=== PATIENT | male | born 1940 | race Caucasian/White ===

== ENCOUNTER 2017-11-17 12:35 | Emergency (ER) | payer MEDICARE ==
[~2017-11-17] VITALS: Ht 188 cm; Wt 100.0 kg
[~2017-11-17 12:35] MED LIST: ASPI-955; LEVO125T PO; LISI1TAB11 PO; PRAV80TA3 PO
[2017-11-17] MEDS ORDERED: normal saline 1000ML IV soln IVB ONE (12:50)
[2017-11-17] MEDS ORDERED: magnesium 1gm/100ml D5W IVPB 100 ML IV ONE (13:05)
[2017-11-17 13:15] LABS: BASOPHILS % (AUTO) 0.3 % (0-1); EOSINOPHILS # (AUTO) 0.1 X10'3 (0-0.9); EOSINOPHILS % (AUTO) 1.9 % (0-6); HEMATOCRIT 42.9 % (42.0-52.0); HEMOGLOBIN 14.3 g/dl (14.0-17.9); LYMPHOCYTES # (AUTO) 0.9 X10'3 (1.1-4.8); LYMPHOCYTES % (AUTO) 14.6 % (21-51); MEAN CORPUSCULAR HEMOGLOBIN 30.4 PG (27.0-31.0); MEAN CORPUSCULAR HGB CONC 33.3 % (33.0-36.5); MEAN CORPUSCULAR VOLUME 91.3 FL (78-98); MEAN PLATELET VOLUME 8.1 FL (7.4-10.4); MONOCYTES # (AUTO) 0.4 X10'3 (0-0.9); NEUTROPHILS # (AUTO) 4.8 X10'3 (1.8-7.7); NEUTROPHILS % (AUTO) 76.2 % (42-75); PLATELET COUNT 172 X10'3 (140-440); WHITE BLOOD COUNT 6.2 X10'3 (4.5-11.0)
[2017-11-17 13:26] LABS: ALBUMIN 3.9 G/DL (3.4-5.0); ANION GAP 5 (8-16); BILIRUBIN,TOTAL 0.6 MG/DL (0.1-1.0); BLOOD UREA NITROGEN 36 MG/DL (7-18); BUN/CREATININE RATIO 27.9 (5.4-32.0); CALCIUM 9.2 MG/DL (8.5-10.1); CHLORIDE 103 MMOL/L (99-107); CREATININE 1.29 MG/DL (0.60-1.10); GLUCOSE 144 MG/DL (70-104); POTASSIUM 4.2 MMOL/L (3.5-5.1); SODIUM 138 MMOL/L (135-145); TOTAL CARBON DIOXIDE 29.6 MMOL/L (24-32); TOTAL PROTEIN 7.7 G/DL (6.4-8.2); eGFR 54 ML/MIN
[2017-11-17 13:27] LABS: ALANINE AMINOTRANSFERASE 30 U/L (12-78); ALKALINE PHOSPHATASE 93 IU/L (46-116); ASPARTATE AMINO TRANSFERASE 20 U/L (10-37)
[2017-11-17 13:31] LABS: D-DIMER 0.32 MG/L FEU (0-0.50)
[2017-11-17 13:42] LABS: MAGNESIUM 2.3 MG/DL (1.5-2.4)
[2017-11-17 15:08] VITALS: BP 128/88
== END 2017-11-17 15:11 | disposition home or self-care (01) ==
LOC: ER 12:35
DX: E86.0 Dehydration (principal); I48.91 Unspecified atrial fibrillation; I25.10 Atherosclerotic heart disease of native coronary artery without angina pectoris; Z95.5 Presence of coronary angioplasty implant and graft; Z79.899 Other long term (current) drug therapy
CPT/HCPCS: 36415; 71045; 80053; 83735; 83880; 84443; 84484; 85025; 85379; 93005; 96361; 96365; 99285; J7030

== ENCOUNTER 2018-04-05 14:10 | Emergency (ER) | payer MEDICARE ==
[~2018-04-05] VITALS: Ht 188 cm; Wt 86.8 kg
[2018-04-05] MEDS ORDERED: normal saline 1000ML IV soln IVB ONE (14:35)
[2018-04-05] MEDS ORDERED: diltiazem 5mg/ml 5ml inj. IV ONE (14:35)
[2018-04-05 15:03] LABS: BASOPHILS % (AUTO) 0.5 % (0-1); EOSINOPHILS # (AUTO) 0.1 X10'3 (0-0.9); EOSINOPHILS % (AUTO) 1.3 % (0-6); HEMATOCRIT 44.7 % (42.0-52.0); HEMOGLOBIN 14.5 g/dl (14.0-17.9); MEAN CORPUSCULAR HEMOGLOBIN 29.5 PG (27.0-31.0); MEAN CORPUSCULAR HGB CONC 32.4 % (33.0-36.5); MEAN PLATELET VOLUME 8.3 FL (7.4-10.4); MONOCYTES # (AUTO) 0.4 X10'3 (0-0.9); MONOCYTES % (AUTO) 5.8 % (2-12); NEUTROPHILS # (AUTO) 5.5 X10'3 (1.8-7.7); NEUTROPHILS % (AUTO) 78.4 % (42-75); PLATELET COUNT 186 X10'3 (140-440); RED BLOOD COUNT 4.91 X10'6 (4.70-6.10); RED CELL DISTRIBUTION WIDTH 12.2 % (11.5-14.5)
[2018-04-05 15:10] LABS: INR 1.2 INR; PARTIAL THROMBOPLASTIN TIME 33 SECONDS (22-32); PROTHROMBIN TIME 11.7 SECONDS (9.0-12.0)
[2018-04-05 15:20] LABS: ALANINE AMINOTRANSFERASE 26 U/L (12-78); ALBUMIN/GLOBULIN RATIO 1.1 (1.1-1.5); ALKALINE PHOSPHATASE 93 IU/L (46-116); ANION GAP 10 (8-16); ASPARTATE AMINO TRANSFERASE 20 U/L (10-37); BILIRUBIN,TOTAL 0.5 MG/DL (0.1-1.0); BLOOD UREA NITROGEN 32 MG/DL (7-18); BUN/CREATININE RATIO 25.6 (5.4-32.0); CALCIUM 9.4 MG/DL (8.5-10.1); CHLORIDE 102 MMOL/L (99-107); CREATININE 1.25 MG/DL (0.60-1.10); GLUCOSE 117 MG/DL (70-104); MAGNESIUM 2.2 MG/DL (1.5-2.4); POTASSIUM 4.4 MMOL/L (3.5-5.1); SODIUM 138 MMOL/L (135-145); TOTAL CARBON DIOXIDE 25.7 MMOL/L (24-32); TOTAL PROTEIN 7.8 G/DL (6.4-8.2); eGFR 56 ML/MIN
[2018-04-05 15:48] VITALS: BP 131/80
== END 2018-04-05 15:53 | disposition home or self-care (01) ==
LOC: ER 14:11
DX: I48.2 Chronic atrial fibrillation (principal); R00.2 Palpitations; I25.10 Atherosclerotic heart disease of native coronary artery without angina pectoris; I10 Essential (primary) hypertension
CPT/HCPCS: 36415; 71045; 80053; 83735; 83880; 84484; 85025; 85610; 85730; 99284; J7030

== ENCOUNTER 2018-04-09 11:45 | Emergency (ER) | payer MEDICARE ==
[~2018-04-09] VITALS: Ht 188 cm; Wt 86.0 kg
[2018-04-09] MEDS ORDERED: RIVA20TA PO (12:02)
[2018-04-09 12:14] LABS: BASOPHILS % (AUTO) 0.2 % (0-1); EOSINOPHILS # (AUTO) 0.1 X10'3 (0-0.9); EOSINOPHILS % (AUTO) 1.6 % (0-6); HEMATOCRIT 43.9 % (42.0-52.0); HEMOGLOBIN 14.7 g/dl (14.0-17.9); LYMPHOCYTES # (AUTO) 1.2 X10'3 (1.1-4.8); LYMPHOCYTES % (AUTO) 16.9 % (21-51); MEAN CORPUSCULAR HEMOGLOBIN 30.2 PG (27.0-31.0); MEAN CORPUSCULAR HGB CONC 33.5 % (33.0-36.5); MEAN CORPUSCULAR VOLUME 90.2 FL (78-98); MEAN PLATELET VOLUME 8.3 FL (7.4-10.4); MONOCYTES # (AUTO) 0.5 X10'3 (0-0.9); NEUTROPHILS # (AUTO) 5.1 X10'3 (1.8-7.7); NEUTROPHILS % (AUTO) 73.3 % (42-75); PLATELET COUNT 193 X10'3 (140-440); RED BLOOD COUNT 4.87 X10'6 (4.70-6.10); RED CELL DISTRIBUTION WIDTH 12.9 % (11.5-14.5); WHITE BLOOD COUNT 6.9 X10'3 (4.5-11.0)
[2018-04-09 12:25] LABS: ALANINE AMINOTRANSFERASE 21 U/L (12-78); ALBUMIN 4.2 G/DL (3.4-5.0); ALBUMIN/GLOBULIN RATIO 1.1 (1.1-1.5); ALKALINE PHOSPHATASE 87 IU/L (46-116); ANION GAP 13 (8-16); ASPARTATE AMINO TRANSFERASE 21 U/L (10-37); BLOOD UREA NITROGEN 27 MG/DL (7-18); BUN/CREATININE RATIO 19.6 (5.4-32.0); CALCIUM 9.5 MG/DL (8.5-10.1); CHLORIDE 102 MMOL/L (99-107); CREATININE 1.38 MG/DL (0.60-1.10); GLUCOSE 126 MG/DL (70-104); POTASSIUM 4.1 MMOL/L (3.5-5.1); SODIUM 140 MMOL/L (135-145); TOTAL CARBON DIOXIDE 24.9 MMOL/L (24-32); eGFR 50 ML/MIN
[2018-04-09 12:30] LABS: INR 1.3 INR; PARTIAL THROMBOPLASTIN TIME 36 SECONDS (22-32); PROTHROMBIN TIME 12.6 SECONDS (9.0-12.0)
[2018-04-09 12:31] LABS: MAGNESIUM 2.1 MG/DL (1.5-2.4)
[2018-04-09] MEDS ORDERED: METO25TA6 PO (13:34)
[2018-04-09] MEDS ORDERED: metoprolol tartrate 50mg tablet PO ONE (13:35)
[2018-04-09] MEDS ORDERED: metoprolol tartrate 12.5mg (1/2 tablet) PO ONE (13:40)
[2018-04-09 14:34] VITALS: BP 135/85
== END 2018-04-09 14:37 | disposition home or self-care (01) ==
LOC: ER 11:46
DX: I49.9 Cardiac arrhythmia, unspecified (principal); I49.5 Sick sinus syndrome; I48.91 Unspecified atrial fibrillation; I25.10 Atherosclerotic heart disease of native coronary artery without angina pectoris; Z98.61 Coronary angioplasty status; Z79.899 Other long term (current) drug therapy
CPT/HCPCS: 36415; 80053; 83735; 83880; 84484; 85025; 85610; 85730; 93005; 99284

== ENCOUNTER 2019-09-30 12:56 | Emergency (ER) | payer MEDICARE ==
[~2019-09-30] VITALS: Ht 188 cm; Wt 100.0 kg
[~2019-09-30 12:56] MED LIST changes: -ASPI-955; -LISI1TAB11 PO; +LISI1TAB28 PO; +METO25TA6 PO; +RIVA20TA PO
[2019-09-30 13:03] VITALS: BP 159/126
[2019-09-30] MEDS ORDERED: oxymetazoline 15 ML nasal spray NS ONE (13:10)
== END 2019-09-30 13:52 | disposition home or self-care (01) ==
LOC: ER 12:56
DX: R04.0 Epistaxis (principal); I48.91 Unspecified atrial fibrillation; I25.10 Atherosclerotic heart disease of native coronary artery without angina pectoris; I10 Essential (primary) hypertension; Z98.61 Coronary angioplasty status; Z79.01 Long term (current) use of anticoagulants; Z79.899 Other long term (current) drug therapy
CPT/HCPCS: 99282; 99284

== ENCOUNTER 2021-05-06 09:15 | Emergency (ER) | payer MEDICARE ==
[~2021-05-06] VITALS: Ht 188 cm; Wt 91.1 kg
[~2021-05-06 09:15] MED LIST changes: -LISI1TAB28 PO; +LISI1TAB51 PO; +LOP25T PO; -METO25TA6 PO
[2021-05-06 09:32] VITALS: BP 122/77
[2021-05-06] MEDS ORDERED: cephalexin 250mg capsule PO ONE (09:50)
[2021-05-06] MEDS ORDERED: TETanus/Pertussis (Acell)/Diphther VAC/PF (Tdap-Adult) 0.5ml syringe IMVAC ONE (09:55)
[2021-05-06] MEDS ORDERED: sulfamethoxazole/trimethoprim DS (800/160mg) tablet PO ONE (09:55)
[2021-05-06] MEDS ORDERED: CEPH-585 PO (09:59)
[2021-05-06] MEDS ORDERED: SULF1TAB45 PO (09:59)
== END 2021-05-06 10:53 | disposition home or self-care (01) ==
LOC: ER 09:16
DX: S61.412A Laceration without foreign body of left hand, initial encounter (principal); L03.114 Cellulitis of left upper limb; I48.91 Unspecified atrial fibrillation; I25.10 Atherosclerotic heart disease of native coronary artery without angina pectoris; I10 Essential (primary) hypertension; Z95.5 Presence of coronary angioplasty implant and graft; Z79.2 Long term (current) use of antibiotics; Z79.899 Other long term (current) drug therapy; W45.8XXA Other foreign body or object entering through skin, initial encounter; Y93.89 Activity, other specified; Y92.89 Other specified places as the place of occurrence of the external cause; Y99.8 Other external cause status
CPT/HCPCS: 90471; 90715; 99283

== ENCOUNTER 2022-05-08 22:18 | Emergency (ER) | payer MEDICARE ==
[~2022-05-08] VITALS: Ht 188 cm; Wt 88.6 kg
[2022-05-08 22:21] VITALS: BP 144/94
[2022-05-08 22:54] LABS: BASOPHILS % (AUTO) 0.5 % (0-1); EOSINOPHILS # (AUTO) 0.1 X10'3 (0-0.9); EOSINOPHILS % (AUTO) 1.4 % (0-6); HEMATOCRIT 40.6 % (42.0-52.0); HEMOGLOBIN 13.5 g/dl (14.0-17.9); LYMPHOCYTES # (AUTO) 1.3 X10'3 (1.1-4.8); LYMPHOCYTES % (AUTO) 16.3 % (21-51); MEAN CORPUSCULAR HEMOGLOBIN 30.6 PG (27.0-31.0); MEAN CORPUSCULAR HGB CONC 33.3 g/dL (33.0-36.5); MEAN CORPUSCULAR VOLUME 91.9 FL (78-98); MEAN PLATELET VOLUME 7.9 FL (7.4-10.4); MONOCYTES # (AUTO) 0.7 X10'3 (0-0.9); NEUTROPHILS # (AUTO) 5.7 X10'3 (1.8-7.7); NEUTROPHILS % (AUTO) 72.8 % (42-75); PLATELET COUNT 167 X10'3 (140-440); RED BLOOD COUNT 4.42 X10'6 (4.70-6.10); RED CELL DISTRIBUTION WIDTH 13.3 % (11.5-14.5); WHITE BLOOD COUNT 7.8 X10'3 (4.5-11.0)
[2022-05-08] MEDS ORDERED: tranexamic acid 100mg/ml inj. TP ONE (23:05)
[2022-05-08] MEDS ORDERED: hydrocortisone acetate 25mg rectal suppository RC PRN (23:05)
[2022-05-08] MEDS ORDERED: phenylephrine 1% (X-tra strg) 15ml nasal spray NS ONE (23:05)
[2022-05-08 23:15] LABS: ALANINE AMINOTRANSFERASE 15 U/L (12-78); ALBUMIN 3.8 G/DL (3.4-5.0); ALBUMIN/GLOBULIN RATIO 1.1 (1.1-1.5); ALKALINE PHOSPHATASE 99 IU/L (46-116); ANION GAP 6 (8-16); ASPARTATE AMINO TRANSFERASE 23 U/L (10-37); BILIRUBIN,TOTAL 0.6 MG/DL (0.1-1.0); BLOOD UREA NITROGEN 27 MG/DL (7-18); BUN/CREATININE RATIO 23.5 (5.4-32.0); CALCIUM 9.5 MG/DL (8.5-10.1); CHLORIDE 107 MMOL/L (99-107); CREATININE 1.15 MG/DL (0.60-1.10); GLUCOSE 107 MG/DL (70-104); POTASSIUM 4.3 MMOL/L (3.5-5.1); SODIUM 143 MMOL/L (135-145); TOTAL CARBON DIOXIDE 29.6 MMOL/L (24-32); TOTAL PROTEIN 7.2 G/DL (6.4-8.2); eGFR 61 ML/MIN
[2022-05-08] MEDS ORDERED: HYDR25SU32 RC (23:37)
== END 2022-05-09 00:18 | disposition home or self-care (01) ==
LOC: ER 22:20
DX: K64.4 Residual hemorrhoidal skin tags (principal); I25.10 Atherosclerotic heart disease of native coronary artery without angina pectoris; I10 Essential (primary) hypertension; I48.91 Unspecified atrial fibrillation; Z95.5 Presence of coronary angioplasty implant and graft; Z79.899 Other long term (current) drug therapy
CPT/HCPCS: 36415; 80053; 85025; 99284

== ENCOUNTER 2022-09-02 18:18 | Emergency (ER) | payer MEDICARE ==
[~2022-09-02 18:18] MED LIST changes: +FINA5TAB11 PO; +FLO0.4C; +HYDR25SU32 RC; +LOSA50TA64 PO; +SOTA80TA73
== END 2022-09-02 18:35 | disposition left against medical advice (07) ==
LOC: ER 18:19
DX: S01.552A Open bite of oral cavity, initial encounter (principal); Z53.21 Procedure and treatment not carried out due to patient leaving prior to being seen by health care provider; W50.3XXA Accidental bite by another person, initial encounter; Y93.89 Activity, other specified; Y92.89 Other specified places as the place of occurrence of the external cause; Y99.8 Other external cause status

== ENCOUNTER 2022-09-06 13:24 | Day surgery (SDC) | payer MEDICARE ==
[~2022-09-06] VITALS: Ht 188 cm; Wt 82.2 kg
[2022-09-06] VITALS (9 sets, daily range): BP systolic 137–166; BP diastolic 66–88
[2022-09-06] MEDS ORDERED: normal saline 1000ml 1,000 ML IV SCH (13:50)
[2022-09-06] MEDS ORDERED: fentaNYL/PF 50MCG/1 ML 2ML syringe IV ONE (13:50)
[2022-09-06] MEDS ORDERED: MIDAZolam 1mg/ml 10ml vial IV ONE (13:50)
[2022-09-06] MEDS ORDERED: METO-395 PO (14:05)
== END 2022-09-06 15:35 | disposition home or self-care (01) ==
LOC: SSTAY O 13:24
PROVIDERS: ATTEND Student in an Organized Health Care Education/Training Program
DX: I48.20 Chronic atrial fibrillation, unspecified (principal); I25.10 Atherosclerotic heart disease of native coronary artery without angina pectoris; I47.1 Supraventricular tachycardia; I11.0 Hypertensive heart disease with heart failure; I50.22 Chronic systolic (congestive) heart failure; I42.9 Cardiomyopathy, unspecified; I49.5 Sick sinus syndrome; E03.9 Hypothyroidism, unspecified; E78.5 Hyperlipidemia, unspecified; I35.1 Nonrheumatic aortic (valve) insufficiency; Z95.0 Presence of cardiac pacemaker; Z95.5 Presence of coronary angioplasty implant and graft; Z87.891 Personal history of nicotine dependence; Z98.890 Other specified postprocedural states; Z79.01 Long term (current) use of anticoagulants
CPT/HCPCS: 93312; 93325; 94760; J2250; J7030; A4620

== ENCOUNTER 2022-10-03 05:43 | Inpatient (IN) | payer MEDICARE ==
[2022-09-30 15:51] LABS: COLOR,URINE YELLOW (Yellow); GLUCOSE, URINE NEGATIVE (Neg); KETONES,URINE NEGATIVE (Neg); LEUKOCYTE ESTERASE ,URINE LARGE (Neg); NITRITES, URINE NEGATIVE (Neg); OCCULT BLOOD,URINE TRACE-INTACT (Neg); PH,URINE 5.5 (4.8-8.0); PROTEIN,URINE NEGATIVE (Neg); UROBILINOGEN,URINE 0.2 E.U/dL (0.2-1.0)
[2022-09-30 15:54] LABS: BASOPHILS % (AUTO) 0.6 % (0-1); EOSINOPHILS # (AUTO) 0.2 X10'3 (0-0.9); EOSINOPHILS % (AUTO) 2.7 % (0-6); LYMPHOCYTES % (AUTO) 15.5 % (21-51); MEAN CORPUSCULAR HEMOGLOBIN 29.6 PG (27.0-31.0); MEAN CORPUSCULAR HGB CONC 33.4 g/dL (33.0-36.5); MEAN CORPUSCULAR VOLUME 88.6 FL (78-98); MEAN PLATELET VOLUME 7.6 FL (7.4-10.4); MONOCYTES # (AUTO) 0.6 X10'3 (0-0.9); MONOCYTES % (AUTO) 8.8 % (2-12); NEUTROPHILS # (AUTO) 4.7 X10'3 (1.8-7.7); NEUTROPHILS % (AUTO) 72.4 % (42-75); PRE OP HEMATOCRIT 36.8 % (42.0-52.0); PRE OP HEMOGLOBIN 12.3 g/dL (14.0-17.9); PRE OP PLATELET COUNT 205 X10'3 (140-440); RED BLOOD COUNT 4.16 X10'6 (4.70-6.10); RED CELL DISTRIBUTION WIDTH 13.4 % (11.5-14.5)
[2022-09-30 15:58] LABS: UA COLLECTION TYPE CLN CATCH MIDSTREAM
[2022-09-30 16:04] LABS: PRE OP INR 1.1 INR; PRE OP PROTIME 11.9 SECONDS (9.0-12.0)
[2022-09-30 16:17] LABS: ALBUMIN 3.6 G/DL (3.4-5.0); ALBUMIN/GLOBULIN RATIO 0.9 (1.1-1.5); ALKALINE PHOSPHATASE 109 IU/L (46-116); BLOOD UREA NITROGEN 34 MG/DL (7-18); BUN/CREATININE RATIO 26.4 (10.0-20.0); CALCIUM 9.2 MG/DL (8.5-10.1); CHLORIDE 105 MMOL/L (99-107); CREATININE 1.29 MG/DL (0.60-1.10); PRE OP ALT 23 U/L (30-65); PRE OP ANION GAP 7 (8-16); PRE OP AST 23 U/L (10-37); PRE OP BILIRUB, TOTAL 0.4 MG/DL (0.0-1.0); PRE OP GLUCOSE 96 MG/DL (70-104); PRE OP POTASSIUM 4.5 MMOL/L (3.4-5.1); PRE OP SODIUM 141 MMOL/L (135-145); TOTAL CARBON DIOXIDE 28.7 MMOL/L (24-32); TOTAL PROTEIN 7.4 G/DL (6.4-8.2); eGFR 53 ML/MIN
[2022-09-30 17:35] LABS: CLARITY,URINE CLOUDY (Clear); WBC,URINE TNTC /HPF (0-4)
[2022-09-30 17:36] LABS: BACTERIA,URINE 3+ /HPF (Neg); SQUAMOUS EPITHELIAL CELL,UR FEW /LPF (FEW)
[2022-10-03] VITALS (21 sets, daily range): BP systolic 111–162; BP diastolic 53–88
[~2022-10-03] VITALS: Ht 188 cm; Wt 81.5 kg
[~2022-10-03 05:43] MED LIST changes: +CHOL500050 PO; +DOCUMENT DATE & TIME OF BETA-BLOCKER PO ONE; -FLO0.4C; +FLO0.4C PO; -HYDR25SU32 RC; -LISI1TAB51 PO; -LOP25T PO; +METO-395 PO; +PREVAGEN PO; -SOTA80TA73; +cefazolin 2gm/D5W 100mL 100 ML IV ONE; +famotidine 20mg tablet PO ONE; +ondansetron/PF 4mg/2ml inj IV PRN; +ringers solution, lacted 1,000 ML IV SCH; +vancomycin 1,500 MG in NS 300ml IV soln IV ONE
[2022-10-03] MEDS ORDERED: iohexol 350MG/ML 100ml bottle IV ONE (07:12)
[2022-10-03] MEDS ORDERED: LIDOcaine 1% 30ml preserv. free vial ONE (07:12)
[2022-10-03] MEDS ORDERED: labetalol 20mg/4ml (5mg/ml) syringe IV PRN ×2 (07:25→08:50)
[2022-10-03] MEDS ORDERED: ondansetron/PF 4mg/2ml inj IV PRN ×2 (07:25→08:50)
[2022-10-03] MEDS ORDERED: ringers solution, lacted 1,000 ML IV SCH (07:25)
[2022-10-03] MEDS ORDERED: morphine 2 MG/ML inj. syringe IV PRN (07:25)
[2022-10-03] MEDS ORDERED: morphine 4 MG/ML inj SYRINge IV PRN (07:25)
[2022-10-03] MEDS ORDERED: midazolam 1 mg/ML 2ml injection ONE (07:31)
[2022-10-03] MEDS ORDERED: heparin 1,000unit/ml 10ml vial 10 ML ONE (07:32)
[2022-10-03] MEDS ORDERED: neostigmine methylsulfate 1 MG/ML 10ml vial ONE (07:32)
[2022-10-03] MEDS ORDERED: LIDOcaine 2% (20mg/ml) 5ml vial ONE (07:32)
[2022-10-03] MEDS ORDERED: propofol inj 20 ML IV ONE (07:32)
[2022-10-03] MEDS ORDERED: ondansetron/PF 4mg/2ml inj ONE (07:32)
[2022-10-03] MEDS ORDERED: rocuronium 10mg/ml inj IV ONE (07:32)
[2022-10-03] MEDS ORDERED: glycopyrrolate 0.2mg/ml inj ONE (07:47)
[2022-10-03] MEDS ORDERED: desflurane 240ml liquid inh. IH ONE (07:47)
[2022-10-03] MEDS ORDERED: PERFLUTREN PROTEIN-A MICROSPHR (Optison) 0.22 MG/ML 3ML VIAL IV ONE (07:47)
[2022-10-03] MEDS ORDERED: protamine sulfate 10mg/ml inj. ONE (08:20)
[2022-10-03] MEDS ORDERED: magnesium 4gm in 100ml NS 100 ML IV PRN (08:50)
[2022-10-03] MEDS ORDERED: potassium Cl 40MEQ/270ML bag 250 ML IV PRN (08:50)
[2022-10-03] MEDS ORDERED: acetaminophen 325mg tablet PO PRN (08:50)
[2022-10-03] MEDS ORDERED: potassium Cl 20 mEq SR tablet PO PRN (08:50)
[2022-10-03] MEDS ORDERED: docusate sod 100mg capsule PO PRN (08:50)
[2022-10-03] MEDS ORDERED: ALPRAZolam 0.25mg tablet PO PRN (08:50)
[2022-10-03] MEDS ORDERED: hydrALAZINE 20mg/ml inj. IV PRN (08:50)
[2022-10-03] MEDS ORDERED: potassium CL 10mEq/100ml bag 100 ML IV PRN (08:50)
[2022-10-03] MEDS ORDERED: proCHLORperazine 10 MG/2 ml inj IV PRN (08:50)
[2022-10-03] MEDS ORDERED: potassium Cl 20mEq/100mL bag 100 ML IV PRN (08:50)
[2022-10-03] MEDS ORDERED: potassium Cl 40MEQ/1/2NS 520ml 520 ML IV PRN (08:50)
[2022-10-03] MEDS ORDERED: pantoprazole 40mg Tablet.DR PO PRN (08:50)
[2022-10-03] MEDS ORDERED: magnesium 2GM in 50ml NS 50 ML IV PRN (08:50)
[2022-10-03] MEDS ORDERED: diphenhydrAMINE 25mg capsule PO PRN (08:50)
--- NOTE | 2022-10-03 09:02 | NUR ---
Received from COMPONENT ENGINEER via BED , accompanied by Anesthesiologist MAGO and report given by Anesthesiolgist. PT BRII TO VERBAL STIMULI. SAO2 98% ON 10 LPM PER MASK, ABLE TO SQUEEZE HANDS/ PUSH FEET W/ EQUAL STRENGTH. NO NUERO DEFICIT TONGUE MIDLINE NO FACIAL ASSYMETRY.ART LINE TO L FA, IV 20 GUAGE TO LFA, GAUGE DRESSING TO R GROIN CDI W/ STOPCOCK REMOVAL IN PLACE. Addendum: 10/03/22 at 0934 by Savannah Becerra RN Amended: Links added.
--- NOTE | 2022-10-03 10:12 | NUR ---
PT DISCHARGED TO 3013A - ALERT, ABLE TO OBEY ALL COMMANDS - PUSH/PULL EXTREMITIES W/ EQUAL STRENGTH; NO FACIAL ASYMMETRY. ART LINE DC'D, REMOVED SUTURE FROM R GROIN. PRESSURE DRESSING TO BOTH ART LINE AND R GROIN VENOUS SITES. CONTINUES O2 AT 3 LPM - W/SAO2 IN HIGH 90'S. VSS. RTYTHM SR/PACED HR 60-64. IV LR CONTINUES AT 200 ML/HR. SCD'S IN PLACE. REPORT TO JADE DE LA PAZ - RELINQUISHED CARE AT BEDSIDE. Addendum: 10/03/22 at 1036 by Savannah Becerra RN Amended: Links added.
--- NOTE | 2022-10-03 10:25 | NUR ---
Patient in room PCU 3013. I have received report from Sami DE LA PAZ and had the opportunity to ask questions and assume patient care.Pt settled into room. Right groin site CDI. no hematoma. Family at bedside. Addendum: 10/03/22 at 1144 by Sally Vega RN Amended: Links added.
[2022-10-03] MEDS: normal saline 1000ml 1,000 ML IV SCH ×2 (10:45→18:50)
--- NOTE | 2022-10-03 13:09 | NUR ---
pt unable to void even with standing. pt requested strait cath when option explaned. 700 ml clear yellow urine removed , followed by 100ml blood tinged urine. Pt states he feels much better. groin site CDI.
[2022-10-03] MEDS: sod chloride 0.9% 10ml flush syringe IV SCH (15:59)
[2022-10-03] MEDS: ceFAZolin 1GM/D5W- ADD-VANTAGE 50 ML IV SCH (15:59)
--- NOTE | 2022-10-03 18:00 | NUR ---
Patient in room PCU 3013. I have received report from Sally DE LA PAZ and had the opportunity to ask questions and assume patient care.
--- NOTE | 2022-10-03 18:30 | NUR ---
Problems reprioritized. Patient report given, questions answered & plan of care reviewed with Anay DE LA PAZ. Catherinein site CDI and soft. Addendum: 10/03/22 at 1831 by Sally Vega RN Amended: Links added.
[2022-10-03] MEDS ORDERED: rivaroxaban 20mg tablet PO SCH (21:00)
[2022-10-03] MEDS: vancomycin/NS 1 GM ADD-VANTAGE 250 ML IV SCH (21:52)
[2022-10-04] MEDS: sod chloride 0.9% 10ml flush syringe IV SCH ×2 (00:53→08:11)
[2022-10-04] MEDS: ceFAZolin 1GM/D5W- ADD-VANTAGE 50 ML IV SCH ×2 (00:53→08:10)
[2022-10-04] MEDS: normal saline 1000ml 1,000 ML IV SCH (04:50)
[2022-10-04 06:18] LABS: BASOPHILS % (AUTO) 0.4 % (0-1); EOSINOPHILS # (AUTO) 0.1 X10'3 (0-0.9); EOSINOPHILS % (AUTO) 0.9 % (0-6); HEMATOCRIT 36.4 % (42.0-52.0); HEMOGLOBIN 11.9 g/dl (14.0-17.9); LYMPHOCYTES # (AUTO) 0.8 X10'3 (1.1-4.8); LYMPHOCYTES % (AUTO) 8.1 % (21-51); MEAN CORPUSCULAR HEMOGLOBIN 29.2 PG (27.0-31.0); MEAN CORPUSCULAR HGB CONC 32.6 g/dL (33.0-36.5); MEAN CORPUSCULAR VOLUME 89.7 FL (78-98); MEAN PLATELET VOLUME 7.7 FL (7.4-10.4); MONOCYTES # (AUTO) 0.6 X10'3 (0-0.9); MONOCYTES % (AUTO) 6.1 % (2-12); NEUTROPHILS # (AUTO) 7.9 X10'3 (1.8-7.7); NEUTROPHILS % (AUTO) 84.5 % (42-75); PLATELET COUNT 191 X10'3 (140-440); RED BLOOD COUNT 4.06 X10'6 (4.70-6.10); RED CELL DISTRIBUTION WIDTH 13.5 % (11.5-14.5); WHITE BLOOD COUNT 9.4 X10'3 (4.5-11.0)
[2022-10-04 06:47] LABS: ALANINE AMINOTRANSFERASE 18 U/L (12-78); ALBUMIN 3.8 G/DL (3.4-5.0); ALKALINE PHOSPHATASE 102 IU/L (46-116); ANION GAP 10 (8-16); ASPARTATE AMINO TRANSFERASE 25 U/L (10-37); BILIRUBIN,TOTAL 0.7 MG/DL (0.1-1.0); BLOOD UREA NITROGEN 30 MG/DL (7-18); BUN/CREATININE RATIO 20.8 (10.0-20.0); CALCIUM 9.5 MG/DL (8.5-10.1); CHLORIDE 104 MMOL/L (99-107); CREATININE 1.44 MG/DL (0.60-1.10); GLUCOSE 107 MG/DL (70-104); POTASSIUM 4.5 MMOL/L (3.5-5.1); SODIUM 139 MMOL/L (135-145); TOTAL CARBON DIOXIDE 25.3 MMOL/L (24-32); TOTAL PROTEIN 7.5 G/DL (6.4-8.2); eGFR 47 ML/MIN
--- NOTE | 2022-10-04 07:36 | NUR ---
Patient in room PCU 3013. I have received report from Anay DE LA PAZ and had the opportunity to ask questions and assume patient care.
[2022-10-04] MEDS ORDERED: tamsulosin 0.4mg capsule PO SCH (08:00)
[2022-10-04] MEDS ORDERED: atorvastatin 20mg tablet PO SCH (08:00)
[2022-10-04] MEDS ORDERED: losartan 50mg tablet PO SCH (08:00)
[2022-10-04] MEDS ORDERED: cholecalciferol (vitamin D3) 1,000 unit (25mcg) tablet PO SCH (08:00)
[2022-10-04] MEDS ORDERED: levoTHYROXINE 125mcg tablet PO SCH (08:00)
[2022-10-04] MEDS ORDERED: finasteride 5mg tablet PO SCH (08:00)
[2022-10-04] MEDS ORDERED: metoprolol succinate 25mg (24-HOUR) SR. Tablet PO SCH (08:00)
[2022-10-04] MEDS: vancomycin/NS 1 GM ADD-VANTAGE 250 ML IV SCH (08:10)
[2022-10-04 08:11] VITALS: BP_SYST 103
--- NOTE | 2022-10-04 12:29 | NUR ---
Pt was DC'd as per 's orders. Pt was unhooked from all IV and tele. Pt has follow up appointment and no changes to meds were made. All belongings were gathered and sent with pt. Pt was wheeled down to lobby by care staff. Pt left in a private vehicle destined for home.
[2022-10-08] MEDS ORDERED: CIPR500T5 PO (14:31)
== END 2022-10-04 12:27 | disposition home or self-care (01) | DRG 274 ==
LOC: PAS IN 05:43 → UNDOADMIN 05:43 → PAS IN 08:52 → PCU 3S 10:15
PROVIDERS: ADMIT Student in an Organized Health Care Education/Training Program; ATTEND Student in an Organized Health Care Education/Training Program
PROC: B24BZZ4 Ultrasonography of Heart with Aorta, Transesophageal (ICD-10-PCS; 2022-10-03)
PROC: 02L73DK Occlusion of Left Atrial Appendage with Intraluminal Device, Percutaneous Approach (ICD-10-PCS; principal; 2022-10-03 07:47)
DX: I48.91 Unspecified atrial fibrillation (principal); Z00.6 Encounter for examination for normal comparison and control in clinical research program; E78.5 Hyperlipidemia, unspecified; I11.0 Hypertensive heart disease with heart failure; I49.5 Sick sinus syndrome; I25.10 Atherosclerotic heart disease of native coronary artery without angina pectoris; I50.9 Heart failure, unspecified; Z79.01 Long term (current) use of anticoagulants; Z95.0 Presence of cardiac pacemaker; Z98.61 Coronary angioplasty status; Z79.899 Other long term (current) drug therapy
CPT/HCPCS: 33340; 36415; 71045; 71046; 76937; 80053; 81001; 82948; 83735; 83880; 84443; 85025; 85347; 85610; 85730; 86885; 86900; 86901; 86920; 87077; 87081; 87088; 87186; 93005; 93308; 93312; 93325; A4615; A4618; A6258; A6449; C1758; C1760; C1889; C1893; C1894; G0378; J0690; J1644; J2250; J2405; J2704; J2710; J2720; J3370; J3490; J7030; J7040; J7120; Q9956; Q9967

== ENCOUNTER 2022-10-22 00:38 | Emergency (ER) | payer MEDICARE ==
[~2022-10-22] VITALS: Ht 188 cm; Wt 81.8 kg
[~2022-10-22 00:38] MED LIST changes: -DOCUMENT DATE & TIME OF BETA-BLOCKER PO ONE; -cefazolin 2gm/D5W 100mL 100 ML IV ONE; -famotidine 20mg tablet PO ONE; -ondansetron/PF 4mg/2ml inj IV PRN; -ringers solution, lacted 1,000 ML IV SCH; -vancomycin 1,500 MG in NS 300ml IV soln IV ONE
[2022-10-22 00:47] VITALS: BP 106/59; PULSE 79; RESP 18; TEMP 96.1; O2SAT 100
== END 2022-10-22 02:01 | disposition home or self-care (01) ==
LOC: ER 00:40
DX: R33.9 Retention of urine, unspecified (principal); I10 Essential (primary) hypertension; E78.00 Pure hypercholesterolemia, unspecified; N17.9 Acute kidney failure, unspecified; Z88.8 Allergy status to other drugs, medicaments and biological substances; Z79.899 Other long term (current) drug therapy
CPT/HCPCS: 51702; 99284; C1758; A4358

== ENCOUNTER 2022-10-25 10:44 | Emergency (ER) | payer MEDICARE ==
[~2022-10-25] VITALS: Ht 188 cm; Wt 68.0 kg
[2022-10-25 10:54] VITALS: TEMP 97.8
--- NOTE | 2022-10-25 12:31 | NUR ---
BLADDER SCANNED PT, 18 ML IN BLADDER. OBTAINED UA FROM F/C
[2022-10-25 13:16] LABS: CLARITY,URINE SLIGHTLY CLOUDY (Clear); COLOR,URINE YELLOW (Yellow); GLUCOSE, URINE NEGATIVE (Neg); KETONES,URINE NEGATIVE (Neg); LEUKOCYTE ESTERASE ,URINE TRACE (Neg); NITRITES, URINE NEGATIVE (Neg); OCCULT BLOOD,URINE LARGE (Neg); PH,URINE 7.5 (4.8-8.0); PROTEIN,URINE NEGATIVE (Neg); UROBILINOGEN,URINE 0.2 E.U/dL (0.2-1.0)
[2022-10-25 13:22] LABS: UA COLLECTION TYPE FOLEY CATH
[2022-10-25 13:24] LABS: BACTERIA,URINE NONE SEEN /HPF (Neg); MUCUS STRANDS NONE SEEN /LPF (Neg); RBC,URINE 20-50 /HPF (0-2); SQUAMOUS EPITHELIAL CELL,UR NONE SEEN /LPF (FEW); WBC,URINE 0-4 /HPF (0-4)
[2022-10-25 13:25] LABS: BASOPHILS # (AUTO) 0.1 X10'3 (0-0.2); BASOPHILS % (AUTO) 0.7 % (0-1); EOSINOPHILS # (AUTO) 0.1 X10'3 (0-0.9); EOSINOPHILS % (AUTO) 1.3 % (0-6); HEMATOCRIT 35.4 % (42.0-52.0); HEMOGLOBIN 11.6 g/dl (14.0-17.9); LYMPHOCYTES # (AUTO) 0.8 X10'3 (1.1-4.8); LYMPHOCYTES % (AUTO) 10.1 % (21-51); MEAN CORPUSCULAR HEMOGLOBIN 29.3 PG (27.0-31.0); MEAN CORPUSCULAR HGB CONC 32.7 g/dL (33.0-36.5); MEAN CORPUSCULAR VOLUME 89.6 FL (78-98); MEAN PLATELET VOLUME 7.5 FL (7.4-10.4); MONOCYTES # (AUTO) 0.5 X10'3 (0-0.9); MONOCYTES % (AUTO) 6.5 % (2-12); NEUTROPHILS # (AUTO) 6.2 X10'3 (1.8-7.7); NEUTROPHILS % (AUTO) 81.4 % (42-75); PLATELET COUNT 211 X10'3 (140-440); RED BLOOD COUNT 3.95 X10'6 (4.70-6.10); RED CELL DISTRIBUTION WIDTH 13.7 % (11.5-14.5); WHITE BLOOD COUNT 7.6 X10'3 (4.5-11.0)
[2022-10-25] MEDS ORDERED: normal saline 1000ml 1,000 ML IV ONE (13:35)
--- NOTE | 2022-10-25 13:36 | NUR ---
VERBAL ORDER FROM MD TO START NS 1000 BOLUS
[2022-10-25 13:37] LABS: APTT 42 SECONDS (22-32)
[2022-10-25 13:41] LABS: ALANINE AMINOTRANSFERASE 17 U/L (12-78); ALBUMIN 3.5 G/DL (3.4-5.0); ALBUMIN/GLOBULIN RATIO 0.9 (1.1-1.5); ALKALINE PHOSPHATASE 92 IU/L (46-116); ANION GAP 7 (8-16); ASPARTATE AMINO TRANSFERASE 17 U/L (10-37); BILIRUBIN,TOTAL 0.7 MG/DL (0.1-1.0); BLOOD UREA NITROGEN 28 MG/DL (7-18); BUN/CREATININE RATIO 20.7 (10.0-20.0); CALCIUM 9.4 MG/DL (8.5-10.1); CHLORIDE 104 MMOL/L (99-107); CREATININE 1.35 MG/DL (0.60-1.10); GLUCOSE 113 MG/DL (70-104); POTASSIUM 4.4 MMOL/L (3.5-5.1); SODIUM 139 MMOL/L (135-145); TOTAL CARBON DIOXIDE 27.8 MMOL/L (24-32); TOTAL PROTEIN 7.3 G/DL (6.4-8.2); eGFR 50 ML/MIN
[2022-10-25 14:00] VITALS: BP 121/54; PULSE 62; RESP 19; O2SAT 100
== END 2022-10-25 14:51 | disposition home or self-care (01) ==
LOC: ER 10:45
DX: E86.0 Dehydration (principal); R31.9 Hematuria, unspecified; E78.00 Pure hypercholesterolemia, unspecified; I48.91 Unspecified atrial fibrillation; I25.10 Atherosclerotic heart disease of native coronary artery without angina pectoris; I10 Essential (primary) hypertension; Z72.89 Other problems related to lifestyle; Z95.5 Presence of coronary angioplasty implant and graft; Z88.8 Allergy status to other drugs, medicaments and biological substances; Z79.899 Other long term (current) drug therapy
CPT/HCPCS: 36415; 80053; 81001; 85025; 85610; 85730; 87077; 87088; 87186; 96360; 99284; J7030

== ENCOUNTER 2022-11-12 11:56 | Day surgery (SDC) | payer MEDICARE ==
[2022-11-12] VITALS (14 sets, daily range): BP systolic 95–123; BP diastolic 60–85; PULSE 58–120; RESP 14–16; TEMP 97.5; O2SAT 94–100
[~2022-11-12] VITALS: Ht 188 cm; Wt 77.9 kg
[2022-11-12] MEDS ORDERED: MIDAZolam 1mg/ml 10ml vial IV ONE (12:15)
[2022-11-12] MEDS ORDERED: fentaNYL/PF 50MCG/1 ML 2ML syringe IV ONE (12:15)
[2022-11-12] MEDS ORDERED: normal saline 1000ml 1,000 ML IV SCH (12:20)
[2022-11-12 12:44] LABS: BASOPHILS % (AUTO) 0.6 % (0-1); EOSINOPHILS # (AUTO) 0.1 X10'3 (0-0.9); HEMATOCRIT 34.3 % (42.0-52.0); HEMOGLOBIN 11.1 g/dl (14.0-17.9); LYMPHOCYTES % (AUTO) 14.2 % (21-51); MEAN CORPUSCULAR HEMOGLOBIN 28.8 PG (27.0-31.0); MEAN CORPUSCULAR HGB CONC 32.5 g/dL (33.0-36.5); MEAN CORPUSCULAR VOLUME 88.7 FL (78-98); MEAN PLATELET VOLUME 7.7 FL (7.4-10.4); MONOCYTES # (AUTO) 0.5 X10'3 (0-0.9); NEUTROPHILS # (AUTO) 5.5 X10'3 (1.8-7.7); NEUTROPHILS % (AUTO) 77.2 % (42-75); PLATELET COUNT 191 X10'3 (140-440); RED BLOOD COUNT 3.86 X10'6 (4.70-6.10); RED CELL DISTRIBUTION WIDTH 14.1 % (11.5-14.5); WHITE BLOOD COUNT 7.1 X10'3 (4.5-11.0)
[2022-11-12 12:51] LABS: INR 1.5 INR
[2022-11-12 13:00] LABS: ALANINE AMINOTRANSFERASE 14 U/L (12-78); ALBUMIN 3.2 G/DL (3.4-5.0); ALBUMIN/GLOBULIN RATIO 0.9 (1.1-1.5); ALKALINE PHOSPHATASE 87 IU/L (46-116); ANION GAP 7 (8-16); ASPARTATE AMINO TRANSFERASE 16 U/L (10-37); BILIRUBIN,TOTAL 0.7 MG/DL (0.1-1.0); BLOOD UREA NITROGEN 25 MG/DL (7-18); BUN/CREATININE RATIO 19.4 (10.0-20.0); CALCIUM 9.2 MG/DL (8.5-10.1); CHLORIDE 106 MMOL/L (99-107); CREATININE 1.29 MG/DL (0.60-1.10); GLUCOSE 105 MG/DL (70-104); SODIUM 141 MMOL/L (135-145); TOTAL CARBON DIOXIDE 27.9 MMOL/L (24-32); TOTAL PROTEIN 6.8 G/DL (6.4-8.2); eCRCL 48 ML/MIN; eGFR 53 ML/MIN
== END 2022-11-12 15:25 | disposition home or self-care (01) ==
LOC: SSTAY O 11:56 → EDSTATUS 15:30
PROVIDERS: ATTEND Student in an Organized Health Care Education/Training Program
DX: Z45.09 Encounter for adjustment and management of other cardiac device (principal); I48.91 Unspecified atrial fibrillation; I25.10 Atherosclerotic heart disease of native coronary artery without angina pectoris; E78.5 Hyperlipidemia, unspecified; I11.0 Hypertensive heart disease with heart failure; I50.9 Heart failure, unspecified; I47.1 Supraventricular tachycardia; I42.9 Cardiomyopathy, unspecified; I49.5 Sick sinus syndrome; I35.1 Nonrheumatic aortic (valve) insufficiency; Z95.0 Presence of cardiac pacemaker; Z79.899 Other long term (current) drug therapy
CPT/HCPCS: 36415; 80053; 85025; 85610; 93312; 93325; 94760; J2250; J3010; J7030; A4620

== ENCOUNTER 2023-12-15 15:23 | Outpatient (CLI) | payer MEDICARE ==
[~2023-12-15 15:23] MED LIST changes: +ASPI-611 PO; +CLOP75TA34 PO; -LOSA50TA64 PO; +OXYB5TAB21 PO; -RIVA20TA PO
== END 2023-12-15 23:59 | disposition home or self-care (01) ==
LOC: RAD 15:23
PROVIDERS: ATTEND Internal Medicine
DX: S29.9XXA Unspecified injury of thorax, initial encounter (principal); M25.561 Pain in right knee; X58.XXXA Exposure to other specified factors, initial encounter; Y93.89 Activity, other specified; Y92.89 Other specified places as the place of occurrence of the external cause; Y99.8 Other external cause status
CPT/HCPCS: 71100; 73564